=== PATIENT | female | born 1960 | race African-American/Black ===

== ENCOUNTER 2019-06-08 07:58 | Day surgery (SDC) | payer MEDICAID ==
[~2019-06-08] VITALS: Ht 170.2 cm; Wt 74.8 kg
[~2019-06-08 07:58] MED LIST: ALPR0.5T PO; ATOR10TA PO; LOSA1TAB40 PO; TIOT4MIS3 IH
[2019-06-08] MEDS ORDERED: LACTATED RINGERS 500 ML IV SCH (08:00)
[2019-06-08 09:35] LABS: EOSINOPHILS % 1.5 % (0.0-5.0); HEMATOCRIT. 35.9 % (36.0-48.0); HEMOGLOBIN. 12.3 g/dL (12.0-16.0); LYMPHOCYTES % 28.6 % (20.0-50.0); MEAN CORPUSCULAR HEMOGLOBIN 30.8 pg (28.0-32.0); MEAN CORPUSCULAR VOLUME 89.8 fL (81.0-99.0); MEAN PLATELET VOLUME 8.3 fl (7.4-10.4); MONOCYTES % 11.3 % (2.0-8.0); NEUTROPHILS % 57.6 % (40.0-76.0); PLATELET 253 x1000/uL (130-400); RED CELL DISTRIBUTION WIDTH 13.2 % (11.6-14.6)
[2019-06-08] MEDS ORDERED: MIDAZOLAM HCL 2 MG/2 ML VIAL ONE ×4 (10:47→11:09)
[2019-06-08] MEDS ORDERED: PROPOFOL 200MG/20ML VIAL IV ONE (10:47)
[2019-06-08] MEDS ORDERED: FENTANYL CITRATE/PF 50MCG/ML 2ML VIAL ONE (10:47)
[2019-06-08] MEDS ORDERED: LIDOCAINE HCL/PF 1% 10 MG/ML 5ML VIAL ONE (10:47)
[2019-06-08] MEDS ORDERED: DIPHENHYDRAMINE 50MG/ML VIAL ONE (10:48)
== END 2019-06-08 12:15 | disposition home or self-care (01) ==
LOC: OR 07:58
PROVIDERS: ATTEND Internal Medicine Gastroenterology
DX: K29.30 Chronic superficial gastritis without bleeding (principal); K44.9 Diaphragmatic hernia without obstruction or gangrene; J44.9 Chronic obstructive pulmonary disease, unspecified; M19.90 Unspecified osteoarthritis, unspecified site; I10 Essential (primary) hypertension; D64.9 Anemia, unspecified; F41.9 Anxiety disorder, unspecified; Z79.899 Other long term (current) drug therapy; Z98.890 Other specified postprocedural states
CPT/HCPCS: 36415; 43239; 85025; 88305; 88312; 88313; J1200; J2250; J2704; J3010; J3490